=== PATIENT | male | born 1970 | race Caucasian/White ===

== ENCOUNTER 2017-01-11 20:24 | Emergency (ER) | payer MEDICAID ==
[2017-01-11 20:24] VITALS: BMI 26.6
[2017-01-11 20:45] VITALS: O2SAT 96
[2017-01-11 21:12] VITALS: BP 144/101; PULSE 74; RESP 18; TEMP 97.7
--- NOTE | 2017-01-11 21:43 | C.PDOC ---
History Of Present Illness 46 y/o male with PMHx of chronic back pain c/o exacerbation of the same pain after heavy lifting at the gym yesterday. Patient has not taken any OTC medications for pain. He notes that he no longer sees PMD due to insurance issues. Patient also c/o radiation of pain to bilateral thighs. Otherwise, patient denies headache, neck pain, abdominal pain, nausea, vomiting, dysuria, hematuria, urinary or bowel incontinence, new extremity weakness, new extremity numbness, or associated symptoms. Time Seen by Provider: 01/11/17 21:27 Chief Complaint (Nursing): Back Pain History Per: Patient History/Exam Limitations: no limitations Onset/Duration Of Symptoms: Days Current Symptoms Are (Timing): Still Present Quality Of Discomfort: "Pain" Previous Symptoms: Back Pain, Chronic Pain Associated Symptoms: None Recent travel outside of the [place]: No Past Medical History Reviewed: Historical Data, Nursing Documentation, Vital Signs Vital Signs: Last Vital Signs Temp 97.7 F 01/11/17 21:11 Pulse 74 01/11/17 21:11 Resp 18 01/11/17 21:11 BP 144/101 H 01/11/17 21:11 Pulse Ox 96 01/11/17 22:07 - Medical History PMH: Back Problems Family History: States: Unknown Family Hx - Social History Hx Tobacco Use: No Hx Alcohol Use: No Hx Substance Use: No - Immunization History Hx Tetanus Toxoid Vaccination: No Hx Influenza Vaccination: No Hx Pneumococcal Vaccination: No Review Of Systems Except As Marked, All Systems Reviewed And Found Negative. Constitutional: Negative for: Fever Cardiovascular: Negative for: Chest Pain Respiratory: Negative for: Cough Gastrointestinal: Negative for: Nausea, Vomiting, Abdominal Pain Musculoskeletal: Positive for: Back Pain Skin: Negative for: Rash Neurological: Negative for: Weakness, Numbness Physical Exam - Physical Exam Appears: Non-toxic, No Acute Distress Skin: Normal Color, Warm, Dry Head: Atraumatic, Normacephalic Eye(s): bilateral: Normal Inspection, PERRL Neck: No Midline Cervical Tenderness, No Paracervical Tenderness, Supple Chest: Symmetrical Cardiovascular: Rhythm Regular Respiratory: Normal Breath Sounds, No Rales, No Rhonchi, No Wheezing Gastrointestinal/Abdominal: Soft, No Tenderness Back: No Vertebral Tenderness, Paraspinal Tenderness (left, lumbar) Extremity: Normal ROM, No Tenderness, Capillary Refill (< 2 sec. ) Extremity: Bilateral: Atraumatic Neurological/Psych: Oriented x3, Normal Speech, Normal Cognition, Normal Motor, Normal Sensation Gait: Steady ED Course And Treatment O2 Sat by Pulse Oximetry: 96 (RA) Pulse Ox Interpretation: Normal Progress Note: Treated with Flexeril and Toradol. On reassessment, patient is in no acute distress, with improvement of back pain. Patient has no bony tenderness, extremity numbness or weakness, or abdominal pain. Patient is ambulatory in the emergency department without difficulty. Patient was advised to follow up with PMD/clinic in 1-2 days. 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 - Scribe Statement The provider has reviewed the documentation as recorded by the Vickey Milligan Provider Scribe Attestation: All medical record entries made by the Scribdanii were at my direction and personally dictated by me. I have reviewed the chart and agree that the record accurately reflects my personal performance of the history, physical exam, medical decision making, and the department course for this patient. I have also personally directed, reviewed, and agree with the discharge instructions and disposition.
== END 2017-01-11 22:12 | disposition home or self-care (01) ==
LOC: C.ER 20:24
DX: M54.5 Low back pain (principal)
CPT/HCPCS: 96372; 99285; J1885